=== PATIENT | female | born 2000 | race Caucasian/White ===

== ENCOUNTER 2018-10-20 11:34 | Emergency (ER) | payer OTHER ==
[~2018-10-20] VITALS: Ht 170.2 cm; Wt 78.5 kg
== END 2018-10-20 21:09 | disposition home or self-care (01) ==
LOC: ER 11:34
DX: O20.0 Threatened abortion (principal); Z3A.01 Less than 8 weeks gestation of pregnancy

== ENCOUNTER → 2018-10-27 09:18 | Outpatient (CLI) | payer OTHER | END | disposition home or self-care (01) | LOC: LAB 09:18 | DX: O36.80X9 Pregnancy with inconclusive fetal viability, other fetus (principal) ==

== ENCOUNTER 2019-02-05 17:49 | Emergency (ER) | payer OTHER ==
[~2019-02-05] VITALS: Ht 170.2 cm; Wt 81.2 kg
[2019-02-05] MEDS ORDERED: PRENATAL PLUS1 EAC1 PO (18:15)
== END 2019-02-05 21:18 | disposition home or self-care (01) ==
LOC: ER 17:49
DX: O21.8 Other vomiting complicating pregnancy (principal); Z34.02 Encounter for supervision of normal first pregnancy, second trimester

== ENCOUNTER 2019-06-17 07:43 | Inpatient (IN) | payer OTHER ==
[~2019-06-17] VITALS: Ht 170.2 cm; Wt 90.7 kg
[~2019-06-17 07:43] MED LIST: PRENATAL PLUS1 EAC1 PO
== END 2019-06-20 13:03 | disposition home or self-care (01) | DRG 807 ==
LOC: OB/GYN 07:43 → LDR 07:43 → OB/GYN 06-18 04:06
PROVIDERS: ADMIT Obstetrics & Gynecology
PROC: 10E0XZZ Delivery of Products of Conception, External Approach (ICD-10-PCS; principal; 2019-06-17)
PROC: 0UQGXZZ Repair Vagina, External Approach (ICD-10-PCS; 2019-06-17)
PROC: 4A1HXCZ Monitoring of Products of Conception, Cardiac Rate, External Approach (ICD-10-PCS; 2019-06-17)
PROC: 4A033R1 Measurement of Arterial Saturation, Peripheral, Percutaneous Approach (ICD-10-PCS; 2019-06-17)
DX: O71.4 Obstetric high vaginal laceration alone (principal); Z37.0 Single live birth; Z3A.39 39 weeks gestation of pregnancy